=== PATIENT | male | born 1965 | race American Indian/Alaskan Native ===

== ENCOUNTER 2019-03-25 00:14 | Emergency (ER) | payer SELFPAY ==
[2019-03-25 00:38] VITALS: BP 148/94
--- NOTE | 2019-03-25 01:32 | XRay Report ---
LEFT SHOULDER 3 VIEWS INDICATION / CLINICAL INFORMATION: Left shoulder pain after fall today. COMPARISON: None available. FINDINGS: BONES and JOINT(S): No acute fracture or subluxation. Mild degenerative changes are seen along the gr eater tuberosity of the humerus. No additional significant arthritis. SOFT TISSUES: No significant abnormality. ADDITIONAL FINDINGS: None. IMPRESSION: No significant abnormality of the left shoulder. Signer Name: Weston Samson MD Signed: 03/25/2019 1:27 AM Workstation Name: [id number]
[2019-03-25] MEDS ORDERED: IBUPROFEN 800 MG TAB PO ONE (01:51)
[2019-03-25] MEDS ORDERED: predniSONE 20 MG TAB PO ONE (01:51)
[2019-03-25] MEDS ORDERED: HYDROcodone/ACETAMINOPHEN 5-325 MG TAB PO ONE (01:51)
[2019-03-25] MEDS ORDERED: traMADol 50 MG TAB PO ONE (02:14)
--- NOTE | 2019-03-25 02:34 | Emergency Department Report ---
Upper Extremity - HPI Chief Complaint: Extremity Injury, Upper Stated Complaint: ARM PAIN Time Seen by Provider: 03/25/19 01:48 Upper Extremity: Left Shoulder Occurred When: 1 Day Mechanism: Fall Severity: moderate Symptoms: Yes Pain with Movement, Yes Limited Range of Movement, No Deformity, No Numbness, No Weakness, No Swelling, No Bruising/Ecchymosis, No Laceration or Abrasion Other History: pt state he had a GLF yesterday. states he slipped and fell getting out of a van on yesterday. now with 7/10 left shoulder pain. pain described as aching and soreness. pain exacerbated by movement pain is relieved by nothing, rom is restricted by pain , there is no numbness or deformity , no other injury ED Review of Systems ROS: Stated complaint: ARM PAIN Other details as noted in HPI Constitutional: denies: chills, fever Eyes: as per HPI ENT: denies: ear pain, throat pain Respiratory: denies: cough, shortness of breath, wheezing Cardiovascular: denies: chest pain, palpitations Endocrine: no symptoms reported Gastrointestinal: denies: abdominal pain, nausea, diarrhea Genitourinary: denies: urgency, dysuria Musculoskeletal: other (left anterior shoulder pain ). denies: back pain, joint swelling, arthralgia Skin: denies: rash, lesions Neurological: denies: headache, weakness, paresthesias Psychiatric: denies: anxiety, depression Hematological/Lymphatic: denies: easy bleeding, easy bruising ED Past Medical Hx - Past Medical History Previous Medical History?: No - Surgical History Past Surgical History?: No - Social History Smoking Status: Never Smoker Substance Use Type: None - Medications Home Medications: Home Medications Medication Instructions Recorded Confirmed Last Taken Type Diclofenac Dr (Nf) 50 mg PO Q8H PRN #30 tablet 03/25/19 Unknown Rx Menthol/Camphor [Purmela [place] 1 applicatio TP QID PRN #1 tube 03/25/19 Unknown Rx Ointment] methOCARBAMOL [Robaxin TAB] 500 mg PO Q6H PRN #30 tablet 03/25/19 Unknown Rx predniSONE [Deltasone] 20 mg PO QDAY 5 Days #10 tab 03/25/19 Unknown Rx Upper Extremity Exam - Exam General: Vital signs noted. No distress. Alert and acting appropriately. Head and Torso: No HEENT Abnormality, No Neck Tenderness, No Chest/Lungs Abnormality, No Abdominal Tenderness, No Back Tenderness Shoulder Exam: Yes Shoulder Tenderness, Yes AC Joint Tenderness, No Clavicle Tenderness, No Normal Range of Motion in Shoulder, No Shoulder Deformity Arm Exam: No Arm/Humerus Tenderness, No Arm Deformity Elbow: Yes Normal Range of Motion in Elbow, No Elbow Tenderness, No Elbow Deformity Forearm: Yes Pain with Pronation, Yes Pain with Supination, No Forearm Tenderness, No Forearm Deformity Wrist: Yes Normal ROM in Wrist, No Wrist Tenderness, No Wrist Deformity, No Snuffbox Tenderness, No Pain with Axial Thumb Compression Hand: Yes Digit Tenderness, No Hand Tenderness, No Hand Deformity CMS Exam: Yes Normal Distal Pulses, Yes Normal Capillary Refill, Yes Normal Distal Sensation, No Broken Skin ED Course Vital Signs 03/25/19 03/25/19 00:18 00:38 Temperature 98.5 F Pulse Rate 122 H 109 H Respiratory 18 Rate Blood Pressure 148/94 O2 Sat by Pulse 96 Oximetry ED Medical Decision Making - Radiology Data Radiology results: report reviewed, image reviewed Ordering Physician: HADLEY LUEVANO MD Date of Service: 03/25/19 Procedure(s): XR shoulder 2+V LT Accession Number(s): [id number] cc: ED MD CHLOÉ Fluoro Time In Minutes: LEFT SHOULDER 3 VIEWS INDICATION / CLINICAL INFORMATION: Left shoulder pain after fall today. COMPARISON: None available. FINDINGS: BONES and JOINT(S): No acute fracture or subluxation. Mild degenerative changes are seen along the greater tuberosity of the humerus. No additional significant arthritis. SOFT TISSUES: No significant abnormality. ADDITIONAL FINDINGS: None. IMPRESSION: No significant abnormality of the left shoulder. 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 pt verbalized agreement and understanding of discharge plan. Critical care attestation.: If time is entered above; I have spent that time in minutes in the direct care of this critically ill patient, excluding procedure time. ED Disposition Clinical Impression: Sprain of shoulder, left Qualifiers: Encounter type: initial encounter Shoulder sprain type: unspecified sprain Qualified Code(s): S43.402A - Unspecified sprain of left shoulder joint, initial encounter Disposition: TO HOME OR SELFCARE Is pt being admited?: No Does the pt Need Aspirin: No Condition: Stable Instructions: Shoulder Sprain (ED), Arthralgia (ED) Prescriptions: predniSONE [Deltasone] 20 mg PO QDAY 5 Days #[address] (Nf) 50 mg PO Q8H PRN #30 tablet PRN Reason: pain methOCARBAMOL [Robaxin TAB] 500 mg PO Q6H PRN #30 tablet PRN Reason: muscle spasm Menthol/Camphor [Purmela [place] Ointment] 1 applicatio TP QID PRN #1 tube PRN Reason: pain Referrals: PRIMARY CARE,MD [Primary Care Provider] - 3-5 Days Forms: Work/School Release Form(ED) Time of Disposition: 02:49
== END 2019-03-25 03:49 | disposition home or self-care (01) ==
LOC: ED 00:14
DX: S43.402A Unspecified sprain of left shoulder joint, initial encounter (principal); Z79.899 Other long term (current) drug therapy; Z88.5 Allergy status to narcotic agent; W01.0XXA Fall on same level from slipping, tripping and stumbling without subsequent striking against object, initial encounter; Y93.89 Activity, other specified; Y92.89 Other specified places as the place of occurrence of the external cause; Y99.8 Other external cause status
CPT/HCPCS: 73030; 99283; J7512